=== PATIENT | female | born 2000 | race Caucasian/White ===

== ENCOUNTER 2025-08-05 19:24 | Emergency (ER) | payer BC ==
--- NOTE | 2025-08-05 19:31 | ERPHSYRPT ---
- History of Present Illness Time Seen by Provider: 08/05/25 19:31 Source: patient, family Exam Limitations: no limitations Physician History: This is an overweight 24-year-old white female patient who presents to the emergency department with the complaint of a sore throat that began this morning. She arrives by private vehicle. She also has associated fever. The fever at home was as high as 103 F which did not seem to respond to Tylenol. However, on arrival to the emergency department her temperature was 99.9 F. Patient did see outpatient urgent care provider this morning in [facility]. She received intramuscular injection. She is assuming was antibiotic but she is not certain. A prescription of what she assumes to be more antibiotic was sent to her pharmacy which she has not picked up at this time. Patient underwent vocal cord surgery on July 02, 2025 to remove polyps from her vocal cord. Since that time she has had several different ear nose and throat issues including bilateral ear infections and now inflamed tonsils with white patches on them. Left worse than right. Patient took 1 g of Tylenol an hour prior to arrival to emergency department. She arrives tachycardic as well with a heart rate in the 120 to 130 bpm range Timing/Duration: abrupt onset, this morning Severity: mild (To moderate) ENT Location: throat Prearrival Treatment: prescription meds Modifying Factors: Improves With: nothing Associated Symptoms: fever, sore throat Allergies/Adverse Reactions: No Known Drug Allergies Allergy (Verified 08/05/25 19:29) Home Medications: ALPRAZolam 0.25 MG [xanAX 0.25 MG] 0.25 mg PO BID PRN PRN 08/05/25 [History] Semaglutide [Wegovy] 15 units SQ .WEEKLY 08/05/25 [History] Sertraline HCl 50 mg [Zoloft 50 mg Tablet] 50 mg PO DAILY 08/05/25 [History] Travel Risk - International Travel Have you traveled outside of the country in past 3 weeks: No - Emerging Infectious Disease Are you exhibiting symptoms associated with any current EIDs: No Symptoms: Fever, Other (Please Comment) (Sore throat) - Review of Systems Constitutional: Fever Eyes: No Symptoms Ears, Nose, & Throat: Throat Pain Respiratory: No Symptoms Cardiac: No Symptoms Abdominal/Gastrointestinal: No Symptoms Genitourinary Symptoms: No Symptoms Musculoskeletal: No Symptoms Skin: No Symptoms Neurological: No Symptoms Psychological: No Symptoms Endocrine: No Symptoms Hematologic/Lymphatic: No Symptoms Immunological/Allergic: No Symptoms All Other Systems: Reviewed and Negative - Past Medical History Pertinent Past Medical History: Yes - Nursing Vital Signs Nursing Vital Signs: Initial Vital Signs Temperature 99.9 F 08/05/25 19:30 Pulse Rate 143 H 08/05/25 19:30 Respiratory Rate 20 08/05/25 19:30 Blood Pressure 124/79 08/05/25 19:30 O2 Sat by Pulse Oximetry 97 08/05/25 19:30 Pain Scale Pain Intensity 7 - Physical Exam General Appearance: no apparent distress, alert, anxiety Eye Exam: bilateral eye: normal inspection, PERRL, EOMI Ear Exam: bilateral ear: auricle normal, canal normal, TM normal Nasal Exam: normal inspection Throat Exam: moist mucus membranes, pharynx tenderness, tonsillar exudate (Left side), tonsillar swelling (Left side worse than right), No uvula swelling, No voice changes Neck Exam: normal inspection, non-tender, supple, full range of motion, trachea midline Cardiovascular/Respiratory Exam: chest non-tender, no respiratory distress, No wheezing (No stridor) Abdominal Exam: non-tender Neurologic Exam: alert, oriented x 3, cooperative, cvt rn II-XII nml as tested, normal mood/affect, nml cerebellar function, nml station & gait, sensation nml Skin Exam: normal color, warm, dry SpO2 Interpretation: normal O2 Delivery: Room Air - Course Nursing assessment & vital signs reviewed: Yes Ordered Tests: Active Orders 24 hr Category Date Time Status IV Insertion STAT Care 08/05/25 20:36 Active BLOOD CULTURE Stat Lab 08/05/25 20:36 Received CBC W DIFF Stat Lab 08/05/25 21:08 Completed CMP Stat Lab 08/05/25 21:08 Completed HCG QUALITATIVE, SERUM Stat Lab 08/05/25 21:08 Completed Lactic Acid Stat Lab 08/05/25 20:36 Completed Medication Summary Discontinued Medications Generic Name Dose Route Start Last Admin Trade Name Freq PRN Reason Stop Dose Admin Methylprednisolone Sodium 0 mg 08/05/25 20:37 08/05/25 21:08 Succinate 125 mg/ Sterile IV 08/05/25 20:38 125 mg Water 2 ml STAT ONE Administration Sodium Chloride 1,000 mls @ 999 mls/hr 08/05/25 20:36 08/05/25 21:07 Sodium Chloride 0.9% 1000 Ml IV 08/05/25 21:36 999 mls/hr .Q1H1M STA Administration Sodium Chloride Confirm 08/05/25 20:40 Sodium Chloride 0.9% 1000 Ml Administered 08/05/25 20:41 Dose 1,000 mls @ ud .ROUTE .STK-MED ONE Methylprednisolone Sodium Succinate Confirm 08/05/25 20:40 Methylprednis Sod Succ 125 Mg/2 Ml Vial Administered 08/05/25 20:41 Dose 125 mg .ROUTE .STK-MED ONE Sterile Water Confirm 08/05/25 20:40 Water For Injection,Sterile 10 Ml Vial Administered 08/05/25 20:41 Dose 10 ml IJ .STK-MED ONE Lab/Rad Data: Laboratory Result Diagrams 08/05/25 21:08 08/05/25 21:08 Laboratory Results 08/05/25 08/05/25 08/05/25 Range/Units 21:08 21:08 21:08 WBC 16.9 H (3.98-10.04) x10^3/uL RBC 5.16 (3.93-5.22) x10^6/uL Hgb 12.8 (11.2-15.7) g/dL Hct 41.2 (34.1-44.9) % MCV 79.8 (79.4-94.8) fL MCH 24.8 L (25.6-32.2) pg MCHC 31.1 L (32.2-35.5) g/dL RDW 13.6 (11.7-14.4) % Plt Count 253 (182-369) x10^3/uL MPV 9.2 L (9.4-12.3) fL Gran % 86.8 H (34.0-71.1) % Immature Gran % (Auto) 0.4 (0.001-0.429) % Nucleat RBC Rel Count 0.0 (0.00-0.2) % Eos # (Auto) 0.02 L (0.04-0.36) x10^3/uL Immature Gran # (Auto) 0.07 H (0.001-0.031) x10^3u/L Absolute Lymphs (auto) 1.08 L (1.18-3.74) x10^3/uL Absolute Monos (auto) 1.04 H (0.24-0.86) x10^3/uL Absolute Nucleated RBC 0.00 (0.00-0.012) x10^3u/L Lymphocytes % 6.4 L (19.3-51.7) % Monocytes % 6.1 (4.7-12.5) % Eosinophils % 0.1 L (0.7-5.8) % Basophils % 0.2 (0.1-1.2) % Absolute Granulocytes 14.68 H (1.56-6.13) x10^3/uL Basophils # 0.04 (0.01-0.08) x10^3/uL Sodium 135 (135-145) mmol/L Potassium 3.8 (3.5-5.1) mmol/L Chloride 105 (98-107) mmol/L Carbon Dioxide 21 L (22-30) mmol/L Anion Gap 12.5 (5-15) MEQ/L BUN 13 (7-17) mg/dL Creatinine 0.91 (0.52-1.04) mg/dL Estimated GFR 90.4 ML/MIN Glucose 106 (74-106) mg/dL Lactic Acid (0.4-2.0) Calcium 9.0 (8.4-10.2) mg/dL Total Bilirubin 0.70 (0.2-1.3) mg/dL AST 19 (14-36) U/L ALT 19 (0-35) U/L Alkaline Phosphatase 79 (38-126) U/L Serum Total Protein 8.4 H (6.3-8.2) g/dL Albumin 4.6 (3.5-5.0) g/dL Serum HCG, Qual NEGATIVE (NEGATIVE) Influenza Type A Ag (NEGATIVE) Influenza Type B Ag (NEGATIVE) RSV (PCR) (NEGATIVE) SARS-CoV-2 (PCR) (NEGATIVE) Group A Strep Antibody (NEGATIVE) 08/05/25 08/05/25 08/05/25 Range/Units 20:36 20:00 19:56 WBC (3.98-10.04) x10^3/uL RBC (3.93-5.22) x10^6/uL Hgb (11.2-15.7) g/dL Hct (34.1-44.9) % MCV (79.4-94.8) fL MCH (25.6-32.2) pg MCHC (32.2-35.5) g/dL RDW (11.7-14.4) % Plt Count (182-369) x10^3/uL MPV (9.4-12.3) fL Gran % (34.0-71.1) % Immature Gran % (Auto) (0.001-0.429) % Nucleat RBC Rel Count (0.00-0.2) % Eos # (Auto) (0.04-0.36) x10^3/uL Immature Gran # (Auto) (0.001-0.031) x10^3u/L Absolute Lymphs (auto) (1.18-3.74) x10^3/uL Absolute Monos (auto) (0.24-0.86) x10^3/uL Absolute Nucleated RBC (0.00-0.012) x10^3u/L Lymphocytes % (19.3-51.7) % Monocytes % (4.7-12.5) % Eosinophils % (0.7-5.8) % Basophils % (0.1-1.2) % Absolute Granulocytes (1.56-6.13) x10^3/uL Basophils # (0.01-0.08) x10^3/uL Sodium (135-145) mmol/L Potassium (3.5-5.1) mmol/L Chloride (98-107) mmol/L Carbon Dioxide (22-30) mmol/L Anion Gap (5-15) MEQ/L BUN (7-17) mg/dL Creatinine (0.52-1.04) mg/dL Estimated GFR ML/MIN Glucose (74-106) mg/dL Lactic Acid 1.1 (0.4-2.0) Calcium (8.4-10.2) mg/dL Total Bilirubin (0.2-1.3) mg/dL AST (14-36) U/L ALT (0-35) U/L Alkaline Phosphatase (38-126) U/L Serum Total Protein (6.3-8.2) g/dL Albumin (3.5-5.0) g/dL Serum HCG, Qual (NEGATIVE) Influenza Type A Ag NEGATIVE (NEGATIVE) Influenza Type B Ag NEGATIVE (NEGATIVE) RSV (PCR) NEGATIVE (NEGATIVE) SARS-CoV-2 (PCR) NEGATIVE (NEGATIVE) Group A Strep Antibody DETECTED A (NEGATIVE) - Progress Progress: improved, re-examined Progress Note: 08/05/25 20:45 My medical decision making and the assignment of moderate complexity of this patient's medical issue today is based on review of the patient's past medical history, review the patient's medication list, allergy list, history present illness and physical findings on examination. The workup in this patient includes placement of intravenous line, CBC, CMP, lactic acid level, provide the patient with infusion of normal saline, Solu-Medrol intravenously. Differential diagnosis includes but is not limited to strep pharyngitis, tonsillitis, fever induced sinus tachycardia, viral illness 08/05/25 22:10 I interpreted the patient's laboratory data results. Based on the laboratory data results, the patient has strep pharyngitis. She also has leukocytosis. After our intervention, her heart rate dropped from 143 bpm down to 115 bpm at the time of discharge. Her temperature has improved compared to her temperature on arrival. 08/05/25 22:11 I found out that the prescription called in for her is cefdinir. She will continue that medication as well. Counseled pt/family regarding: lab results, diagnosis, need for follow-up Medical Desision Making - Diagnostic Testing Diagnostic test were ordered, analyzed, and reviewed by me: Yes - Risk of complications Low Risk: Low risk of morbidity from additional dx testing or treatment The pt has a mod risk of morbidity or mortality based on: Need for prescription drug management - Departure Departure Disposition: Home Clinical Impression: Fever, Strep pharyngitis Condition: Stable Critical Care Time: No Referrals: TIMI QUEEN [NON-STAFF PHY W/O PRIVILEGES, [facility]] - Follow up/PCP as directed Additional Instructions: Drink plenty of clear liquids. Take your hydrocodone/acetaminophen elixir as prescribed. Do not take the first dose until 12:30 AM on 08/06/2025. You may alternate Tylenol and ibuprofen as discussed throughout the day if you are not taking the hydrocodone/acetaminophen elixir. Take your antibiotics that were prescribed for you. Call your rn heart/surgeon tomorrow, 08/06/2025, to make arrangements for follow-up appointment to be seen in the next 3 to 5 days. Prescriptions: Hydrocodone/Acetaminophen [Hydrocodone-Acetamn 7.5-325/15] 10 ml PO Q12H PRN #60 ml MDD 20 ml PRN Reason: Moderate To Severe Pain
[2025-08-05] MEDS ORDERED: Sterile H2O 10 ml IJ ONE (20:40)
[2025-08-05 20:45] LABS: INFLUENZA A NEGATIVE (NEGATIVE); INFLUENZA B NEGATIVE (NEGATIVE); RESPIRATORY SYNCTIAL VIRUS NEGATIVE (NEGATIVE); SARS-CoV-2 Xpert Express NEGATIVE (NEGATIVE)
[2025-08-05] MEDS: solu-MEDROL 125 MG, Sterile H2O 10 ml 2 ML IV ONE (21:08)
[2025-08-05 21:10] LABS: BASOPHIL % 0.2 % (0.1-1.2); Basophil (Absolute #) 0.04 x10^3/uL (0.01-0.08); Eosinophil (Absolute #) 0.02 x10^3/uL (0.04-0.36); Hematocrit 41.2 % (34.1-44.9); Hemoglobin 12.8 g/dL (11.2-15.7); IMMATURE GRAN # 0.07 x10^3u/L (0.001-0.031); IMMATURE GRAN % 0.4 % (0.001-0.429); Lymphocyte (Absolute #) 1.08 x10^3/uL (1.18-3.74); Mean Corpuscular Hemoglobin 24.8 pg (25.6-32.2); Mean Corpuscular Hgb Concent. 31.1 g/dL (32.2-35.5); Monocyte (Absolute #) 1.04 x10^3/uL (0.24-0.86); NUCLEATED RBC # 0.00 x10^3u/L (0.00-0.012); NUCLEATED RBC % 0.0 % (0.00-0.2); Platelet Count 253 x10^3/uL (182-369); Red Blood Count 5.16 x10^6/uL (3.93-5.22); White Blood Count 16.9 x10^3/uL (3.98-10.04)
[2025-08-05 21:13] VITALS: RESP 19
[2025-08-05 21:23] LABS: Calcium 9.0 mg/dL (8.4-10.2); Carbon Dioxide 21.0 mmol/L (22-30); Creatinine 1 0.91 mg/dL (0.52-1.04); EST GLOMERULAR FILTRATION RATE 90.4 ML/MIN; Glucose 106.0 mg/dL (74-106); Potassium 3.8 mmol/L (3.5-5.1); SGOT/AST 19.0 U/L (14-36); SGPT/ALT 19.0 U/L (0-35); Total Protein 8.4 g/dL (6.3-8.2)
[2025-08-05 22:07] LABS: HCG SERUM TEST NEGATIVE (NEGATIVE)
[2025-08-05 22:13] VITALS: BP 126/67; PULSE 109; TEMP 99.5; O2SAT 98
[2025-08-05] MEDS: HYDROCODONE-ACETAMIN 2.5-108/5 ML SOLUTION PO STA (22:20)
[2025-08-05] MEDS ORDERED: HYDROCODONE-ACETAMIN 2.5-108/5 ML SOLUTION ONE (22:20)
== END 2025-08-05 22:28 | disposition home or self-care (01) ==
LOC: ED 19:24
DX: J02.0 Streptococcal pharyngitis (principal); R50.9 Fever, unspecified; Z79.85 Long-term (current) use of injectable non-insulin antidiabetic drugs; Z79.899 Other long term (current) drug therapy